=== PATIENT | female | born 1970 | race Caucasian/White ===

== ENCOUNTER 2021-02-13 12:03 | Outpatient (CLI) | payer OTHER ==
--- NOTE | 2021-02-23 13:12 | Mammography Report ---
BILATERAL DIGITAL SCREENING MAMMOGRAM 3D/2D: 02/13/2021 CLINICAL: Routine screening. No prior exams were available for comparison. There are scattered fibroglandular elements in both br easts. No significant masses, calcifications, or other findings are seen in either breast. IMPRESSION: NEGATIVE There is no mammographic evidence of malignancy. A 1 year screening mammogram is recommended. This exam was interpreted at Station ID: [id number]. NOTE: For mammograms, a report in lay terms will be sent to the patient. Approximately 15% of breast malignancies will not be visualized mammographically. In the management of a palpable breast mass, a negative mammogram must not discourage biopsy of a clinically suspicious lesion. Electronically Signed By: Robert Heath M.D., jr/millie:02/22/2021 10:32:57 ACR BI-RADS Category 1: Negative 3341F PARENCHYMAL PATTERN: (A) - The breast(s) demonstrate(s) scattered fibroglandular densities. BI-RADS CATEGORY: (1) - 1 RECOMMENDATION: (ANNUAL) - Recommend routine annual screening mammography. [id number] 1 year screening LATERALITY: (B)
== END 2021-02-13 12:04 | disposition home or self-care (01) ==
LOC: DI.N 12:03
PROVIDERS: ATTEND Internal Medicine
DX: Z12.31 Encounter for screening mammogram for malignant neoplasm of breast (principal)

== ENCOUNTER 2021-07-10 09:17 | Outpatient (CLI) | payer OTHER | END 2021-07-10 09:18 | disposition critical access hospital (66) | LOC: EMS 09:17 | DX: S01.81XA Laceration without foreign body of other part of head, initial encounter (principal); W00.0XXA Fall on same level due to ice and snow, initial encounter; Y93.01 Activity, walking, marching and hiking; Y92.414 Local residential or business street as the place of occurrence of the external cause | CPT/HCPCS: A0425; A0429 ==

== ENCOUNTER 2021-07-10 09:37 | Emergency (ER) | payer OTHER ==
[2021-07-10] MEDS ORDERED: CYCLOBENZAPRINE 10 MG TABLET PO STA (09:47)
[2021-07-10] MEDS ORDERED: HYDROcod/ACETAM 5/325 MG TABLET PO STA (09:47)
--- NOTE | 2021-07-10 09:52 | ED Physician Documentation ---
PD HPI Fall - Stated complaint Stated Complaint: GLF/LAC - History obtained from History obtained from: Patient (Patient is a 51-year-old female who presents to the emergency department after a slip and fall on the ice today. She stuck her head), EMS - History of Present Illness Mechanism of injury: Slipped Fall distance: Standing position Where injury occurred: Street Timing - onset: How many hours ago (1) Injury(ies) location: Head, Neck Pain level max: 8 Pain level now: 6 Associated symptoms: No: LOC, AMS, Amnesia, Seizures, Ear drainage, Nasal drainage, Dyspnea, Nausea / vomiting Symptoms improve with: Rest Worsens with: Movement, Palpation Contributing factors: No: Anticoagulated, Intoxicated - Additional information Additional information: Patient is a 51-year-old female who presents to the emergency department after a slip and fall on the ice today. She struck her head on the crosswalk and caused bleeding. No loss of consciousness. No vomiting or worse. Tetanus up-to-date. She has chronic neck and back pain. No low numbness or tingling. No neurological deficits. 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 : None HEENT: None Psych: None Musculoskeletal: Chronic back pain Derm: None - Past Surgical History Past Surgical History: Yes Ortho: Shoulder arthroplasty, Spine surgery /SWISS MACHINIST: Hysterectomy Derm: Skin cancer surgery - Present Medications Home Medications: Ambulatory Orders Medication Instructions Recorded Confirmed Acyclovir 400 mg PO BID 07/21/15 07/10/21 Topiramate [Topamax] 50 mg PO BID 07/21/15 07/10/21 Estrogens, Conjugated [Premarin] 0.45 mg PO DAILY 09/11/15 07/10/21 Amlodipine Besylate [Norvasc] 5 mg PO DAILY 07/10/21 07/10/21 Atorvastatin Calcium 40 mg PO DAILY PM 07/10/21 07/10/21 Celecoxib [CeleBREX] 100 mg PO DAILY 07/10/21 07/10/21 Famotidine [Pepcid] 20 mg PO BID 07/10/21 07/10/21 HYDROcod/ACETAM 5/325 [[place] 5/325] 1 - 2 ea PO Q6H PRN #14 tablet 07/10/21 Pantoprazole Sodium 20 mg PO DAILY 07/10/21 07/10/21 - Allergies Allergies/Adverse Reactions: Allergies Allergy/AdvReac Type Severity Reaction Status Date / Time No Known Drug Allergies Allergy Verified 07/10/21 09:55 - Social History Does the pt smoke?: No Smoking Status: Never smoker Does the pt drink ETOH?: No Does the pt have substance abuse?: No - Immunizations Immunizations are current?: Yes - POLST Patient has POLST: No PD ED PE NORMAL - Vitals Vital signs reviewed: Yes - General General: Alert and oriented X 3, No acute distress, Well developed/nourished - HEENT HEENT: PERRL, EOMI, Moist mucous membranes, Other (blood dried to R side of scalp.) - Neck Neck: Other (Cervical collar in place. Mild midline tenderness to palpation. 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, No motor deficit, No sensory deficit, Normal speech Eye Opening: Spontaneous Motor: Obeys Commands Verbal: Oriented GCS Score: 15 - Psych Psych: Normal mood, Normal affect Results - Vitals Vitals: Vital Signs - 24 hr 07/10/21 07/10/21 09:50 11:53 Temperature 36.7 C Heart Rate 69 61 Respiratory 16 18 Rate Blood Pressure 117/85 H 104/84 H O2 Saturation 100 100 Oxygen O2 Source Room air - Rads (name of study) head Ct Radiology: Final report received, EMP read contemporaneously, See rad report cervical spine CT Radiology: Final report received, EMP read contemporaneously, See rad report PD MEDICAL DECISION MAKING - ED course Complexity details: reviewed results, re-evaluated patient, considered differential, d/w patient ED course: No acute findings on head CT or cervical spine CT. She does not have any scalp lacerations but does have a scalp abrasion. Her tetanus is up-to-date. Pain well controlled. Will prescribe pain medication for home. Patient has muscle relaxants at home. Neurovascularly intact. I am prescribing a short course of short-acting opioid pain medication for this patient. I have reviewed the patients [employer] and no concerning findings were noted. I have discussed that the opioids are for short term therapy only, and will not be refilled from the ED. Patient counseled regarding signs and symptoms for which I believe and urgent re-evaluation would be necessary. Patient with good understanding of and agreement to plan and is comfortable going home at this time This document was made in part using voice recognition software. While efforts are made to proofread this document, sound alike and grammatical errors may occur. Departure - Departure Disposition: Home, Self Care Clinical Impression: Fall Qualifiers: Encounter type: initial encounter Qualified Code(s): W19.XXXA - Unspecified fall, initial encounter Scalp abrasion Qualifiers: Encounter type: initial encounter Qualified Code(s): S00.01XA - Abrasion of scalp, initial encounter Closed head injury Qualifiers: Encounter type: initial encounter Qualified Code(s): S09.90XA - Unspecified injury of head, initial encounter Neck muscle strain Qualifiers: Encounter type: initial encounter Qualified Code(s): S16.1XXA - Strain of muscle, fascia and tendon at neck level, initial encounter Condition: Good Instructions: ED Head Injury Closed, ED Sprain Strain Neck Follow-Up: Provider,Other [Primary Care Provider] - Within 1 week Prescriptions: HYDROcod/ACETAM 5/325 [[place] 5/325] 1 - 2 ea PO Q6H PRN #14 tablet PRN Reason: Pain Comments: Please follow-up with your doctor for further care. Return if you worsen. Your head CT and cervical spine CT did not show any acute abnormalities. There is an abrasion on the back of your head, but no laceration. Your prescriptions were sent to [facility] in [place]. I am prescribing a short course of narcotic pain medication for you. These are potentially dangerous and addictive medications that should be used carefully. These medications may constipate you. Take an hyap-awf-cavvayx stool softener (docusate) twice daily with plenty of water while taking these medications. If you go 24 hours without a bowel movement, take mamj-pgp-qjealbj miralax, per package instructions. Do not drink or drive while taking these medications. If you received narcotic or sedating medications while in the emergency department, do not drive for 24 hours. Store this medication in a safe, secure place and out of reach of children. It is a violation of federal law to give or sell this medication to another person or to use in a manner other than prescribed. The ED will not refill narcotic prescriptions, including prescriptions lost or stolen. To dispose of unwanted medications: 1. [facility] at [address] in [place] has a medication drop box. They accept prescription medications (in pill form) Friday through Friday 9:00 a.m. to 5:00 p.m. 2. [facility] [employer] accepts prescription medications (in pill form only) for disposal year round. Call for more information. 3. Contact the [facility] for the next [employer] sponsored prescription drug collection event. , [phone], or [phone]; Discharge Date/Time: 07/10/21 12:18
--- NOTE | 2021-07-10 10:45 | CT Report ---
PROCEDURE: HEAD WO INDICATIONS: fall, head injury TECHNIQUE: Noncontrast 4.5 mm thick angled axial sections acquired from the foramen magnum to the vertex. For r adiation dose reduction, the following was used: automated exposure control, adjustment of mA and/or kV according to patient size. COMPARISON: None. FINDINGS: Image quality: Excellent. CSF spaces: Basal cisterns are patent. No extra-axial fluid collections. Ventricles are normal in size and shape. Brain: No midline shift. No intracranial masses or hemorrhage. Garcia-white matter interface is norm al. Skull and face: Calvarium and visualized facial bones are intact, without suspicious lesions. High right posterior parieto-occipital skin laceration with associated subgaleal hematoma. Sinuses: Visualized sinuses and mastoids are clear. IMPRESSION: 1. Right scalp laceration with associated subgaleal hematoma. 2. Otherwise unremarkable head CT. No evidence acute stroke, hemorrhage, or mass. No evidence of sign ificant intracranial sequelae of acute trauma. Reviewed by: Francisco Marquez MD on 07/10/2021 10:44 AM [facility] Approved by: Francisco Marquez MD on 07/10/2021 10:44 AM [facility] Station ID: [id number]
--- NOTE | 2021-07-10 10:50 | CT Report ---
PROCEDURE: CERVICAL SPINE WO INDICATIONS: fall, neck pain TECHNIQUE: Noncontrast 3 mm thick sections acquired from the skull base to the T4 level. Sagittal and coronal r eformats were then constructed. For radiation dose reduction, the following was used: automated exp osure control, adjustment of mA and/or kV according to patient size. COMPARISON: None. FINDINGS: Image quality: Excellent. Bones: Remote ACDF at C5-C6 and interbody fusion at C5-C6 and placement of a disc prosthesis at C6-C7 . No evidence of hardware failure or loosening. No fractures or dislocations. Visualized superior ri bs are intact. Soft tissues: Prevertebral soft tissues are normal in thickness. No paravertebral hematomas. No ap ical pneumothoraces. IMPRESSION: 1. No evidence acute cervical fracture or dislocation. 2. Remote cervical fusion and disc prosthesis. Reviewed by: Francisco Marquez MD on 07/10/2021 10:49 AM PST Approved by: Francisco Marquez MD on 07/10/2021 10:49 AM PST Station ID: [id number]
[2021-07-10 11:55] VITALS: BP 104/84
== END 2021-07-10 12:18 | disposition home or self-care (01) ==
LOC: EDUNIT# → ED 09:37
DX: S00.01XA Abrasion of scalp, initial encounter (principal); W00.0XXA Fall on same level due to ice and snow, initial encounter; Y93.9 Activity, unspecified; Y92.410 Unspecified street and highway as the place of occurrence of the external cause
CPT/HCPCS: 70450; 72125; 99283; 99284; A9270

== ENCOUNTER 2023-04-29 13:19 | Outpatient (CLI) | payer OTHER ==
[2023-04-29] MEDS ORDERED: iohexoL-300 100 ML VIAL IVP ONE (14:47)
--- NOTE | 2023-04-29 19:48 | CT Report ---
PROCEDURE: LOWER EXTREMITY W - LT INDICATIONS: LEFT KNEE PAIN W/SMALL SOFT TISSUE MASS ON LT CALF TECHNIQUE: After administration of contrast 3 mm axial sections acquired of the left knee, with coronal and sagi ttal reformats. For radiation dose reduction, the following was used: automated exposure control, a djustment of mA and/or kV according to patient size. CONTRAST: 100mL Omni 300 COMPARISON: None. FINDINGS: Image quality: Excellent. Bones: Left knee alignment is anatomic. No fracture or dislocation. Mild tricompartmental osteoarthr itis is seen with joint space narrowing, subchondral sclerosis and small marginal osteophyte formatio n more notably in medial femoral tibial compartment. No suspicious bony lesions. Soft tissues:. Fiducial marker is placed over anteromedial aspect of proximal lower leg. There is no significant joint effusion. No calcified intra-articular loose bodies. No gross enhancing soft tissu e mass or drainable fluid collection is seen in left knee or included portion of left lower leg. No a bnormal soft tissue calcifications. IMPRESSION: 1. No enhancing soft tissue mass is seen. No drainable fluid collection is noted. 2. No gross intramuscular mass or area of abnormal enhancement. No abnormal soft tissue calcification s. No significant joint effusion. 3. Mild tricompartmental osteoarthritis. No fracture or dislocation. No suspicious bony lesions. Reviewed by: Jorge Jonas MD on 04/29/2023 7:47 PM PDT Approved by: Jorge Jonas MD on 04/29/2023 7:47 PM PDT Station ID: [id number]
== END 2023-04-29 13:20 | disposition home or self-care (01) ==
LOC: DI 13:19
PROVIDERS: ATTEND Internal Medicine
DX: M17.12 Unilateral primary osteoarthritis, left knee (principal)
CPT/HCPCS: 73701; Q9967

== ENCOUNTER 2023-09-11 09:45 | Outpatient (CLI) | payer OTHER ==
--- NOTE | 2023-09-11 20:40 | XRAY Report ---
PROCEDURE: Elbow 3+V LT INDICATIONS: OLECRANON BURSITIS TECHNIQUE: 3 views of the elbow were acquired. COMPARISON: None. FINDINGS: Bones: No fractures or dislocations. No suspicious bony lesions. Soft tissues: No effusion. No suspicious soft tissue calcifications or masses. IMPRESSION: No acute bony abnormality. Reviewed by: Francisco Marquez MD on 09/11/2023 8:39 PM PST Approved by: Francisco Marquez MD on 09/11/2023 8:39 PM PST Station ID: [id number]
== END 2023-09-11 10:00 | disposition home or self-care (01) ==
LOC: DI.N 09:45
PROVIDERS: ATTEND Physician Assistant
DX: M70.22 Olecranon bursitis, left elbow (principal)

== ENCOUNTER 2023-10-20 10:39 | Outpatient (CLI) | payer OTHER ==
--- NOTE | 2023-10-21 09:26 | Mammography Report ---
BILATERAL DIGITAL SCREENING MAMMOGRAM 3D/2D: 10/20/2023 CLINICAL: Routine screening. Comparison is made to exams dated: 02/12/2022 mammogram and 02/13/2021 mammogram - [facility]. There are scattered areas of fibroglandular density in both breasts (category b / 25%-50% glandular t issue). No significant masses, calcifications, or other findings are seen in either breast. There has been no significant interval change. IMPRESSION: NEGATIVE There is no mammographic evidence of malignancy. A 1 year screening mammogram is recommended. Based on the Tyrer Cuzick model (a risk assessment model) the patient's lifetime risk is 7.2% and her 10 year risk is 1.9%. According to the ACR, ACS, and NCCN guidelines, an annual breast MRI exam tony g with mammogram is recommended if the patient's lifetime risk is 20% or greater. This exam was interpreted at Station ID: [id number]. NOTE: For mammograms, a report in lay terms will be sent to the patient. Approximately 15% of breast malignancies will not be visualized mammographically. In the management of a palpable breast mass, a negative mammogram must not discourage biopsy of a clinically suspicious lesion. Electronically Signed By: Jillian acosta/millie:10/20/2023 16:58:30 letter sent: No_Letter ACR BI-RADS Category 1: Negative 3341F PARENCHYMAL PATTERN: (A) - The breast(s) demonstrate(s) scattered fibroglandular densities. BI-RADS CATEGORY: (1) - 1 RECOMMENDATION: (ANNUAL) - Recommend routine annual screening mammography. [id number] 1 year screening LATERALITY: (B)
== END 2023-10-20 10:40 | disposition home or self-care (01) ==
LOC: DI.N 10:39
PROVIDERS: ATTEND Internal Medicine
DX: Z12.31 Encounter for screening mammogram for malignant neoplasm of breast (principal); R92.323 Mammographic fibroglandular density, bilateral breasts